=== PATIENT | female | born 1945 | race Caucasian/White ===

== ENCOUNTER 2020-02-10 14:18 | Outpatient (RCR) | payer MEDICARE, MEDICAID, SELFPAY ==
--- NOTE | 2020-01-16 16:30 | XR_ITS ---
WS: [id number] XR foot LT min 3V* [id number] REASON FOR EXAM: PAIN,REDNESS,NON-HEALING ULCER FINDINGS: Throughout the foot there is evidence of reabsorptive changes and swelling suggesting neuro lamont changes. There is no definite destruction seen but there is mild lytic changes occurring in the distal interph alangeal foot Spurring off the head of the first metatarsal is seen. Lisfranc's joint shows reabsorptive changes. There is soft tissue swelling of the foot. XR/XR foot LT min 3V* [id number] IMPRESSION: Suspect inflammatory changes in the foot consideration of diabetic neuropathy s hould be ruled out. And a Charcot foot.
--- NOTE | 2020-02-07 11:03 | XR_ITS ---
WS: [id number] LEFT FOOT: 3 VIEW(S) TECHNIQUE: AP HISTORY: PAIN/REDNESS/NON HEALING ULCER COMPARISON: 01/16/2020 No acute fracture or dislocation. Degenerative changes in the midfoot. Joint space narrowing with normal arch of the foot maintained. M ild hallux valgus. Hammertoe deformities. Superficial soft tissue ulceration posterior to the calcaneus extends over length of 3.0 cm. Depth of 0.3 cm. Extensive arterial calcifications. Small calcaneal spur. XR/XR foot LT min 3V* [id number] IMPRESSION: 1. Superficial soft tissue ulceration posterior calcaneus measures 3.0 x 0.3 c m. No underlying osteomyelitis. 2. Peripheral arterial calcifications.
--- NOTE | 2020-02-07 11:03 | XR_ITS ---
WS: [id number] RIGHT FOOT: 3 VIEW(S) TECHNIQUE: PA, oblique and lateral. HISTORY: PAIN/REDNESS/NON HEALING ULCER COMPARISON: 09/16/2019 No acute fracture or dislocation. Prior amputation of the first toe. Soft tissue ulceration distal to the first metatarsal head is agai n evident measuring 2.4 x 0.5 cm. No osteomyelitis is evident at the first metatarsal head. New destr uction involving the distal phalanx of the second toe with soft tissue edema. Hammertoe deformities. Soft tissue edema around the foot. XR/XR foot RT min 3V* [id number] IMPRESSION: 1. Soft tissue ulceration distal to the first metatarsal head essentially unch anged. No underlying osteomyelitis. 2. New bone destruction involving the distal phalanx of the second toe suspici ous for osteomyelitis. 3. First phalanx amputation.
== END 2020-02-11 23:59 | disposition home or self-care (01) ==
LOC: WOUND 14:18
PROVIDERS: Family Provider Family Medicine; PCP Nurse Practitioner Family; Visit Provider Nurse Practitioner Family
DX: E11.621 Type 2 diabetes mellitus with foot ulcer (principal); L97.513 Non-pressure chronic ulcer of other part of right foot with necrosis of muscle; M79.672 Pain in left foot; M79.671 Pain in right foot; I70.202 Unspecified atherosclerosis of native arteries of extremities, left leg; Z89.421 Acquired absence of other right toe(s); E11.610 Type 2 diabetes mellitus with diabetic neuropathic arthropathy
CPT/HCPCS: 11042; 11044; 73630; 87070; 87077; 87176; 87186; 87205; 99214; G0463; L3260

== ENCOUNTER 2020-02-17 10:11 | Observation (INO) | payer MEDICARE, MEDICAID, SELFPAY ==
[2020-02-17] VITALS (11 sets, daily range): BP systolic 115–182; BP diastolic 53–136; PULSE 54–78; RESP 10–18; TEMP 36.3–36.9; O2SAT 95–100; BMI 27.8
--- NOTE | 2020-02-17 10:29 | XR_ITS ---
WS: [id number] FOOT RIGHT TECHNIQUE: 3 views of the right foot CLINICAL INFORMATION: infection COMPARISON: February 07, 2020 FINDINGS: Osteopenia. Prior postoperative changes amputation of the first MTP. Edema in the soft tiss ue stump. Soft tissue edema involving the second and third digits. Diffuse destructive osteolysis inv olving the second distal phalanx most consistent with osteomyelitis. This is progressed since January 122019. Tiny plantar calcaneal spur. Soft tissue edema at the ankle. XR/XR foot RT min 3V* [id number] IMPRESSION: 1. Progressed destructive osteolysis involving the second distal phalanx consi stent with osteomyelitis. This is progressed since February 07, 2020 2. Stable postoperative changes first MTP amputation. 3. Soft tissue edema worse involving the second and third digits.
--- NOTE | 2020-02-17 10:29 | W.ED.EXTPRO ---
Documented by User: WHIT Cai 02/17/20 13:46 HPI - Extremity Problem General: Chief complaint: Extremity Problem,Nontraumatic Stated complaint: Right foot toe pain Time Seen by Provider: 02/17/20 10:16 Source: patient Mode of arrival: ambulatory Limitations: no limitations History of Present Illness: HPI Narrative: reports she was told to come to ED on Monday by Dr. Banks but she did not have a ride so decided to come today; she states she was told on Monday to come so she can be admitted and Darren can amputate 2nd toe; pt is not reporting fevers; she states redness on her foot does not seem to be worsening; she reports taking antibiotics but does not know name of them-states she has a few doses left; she has been following up with wound care chronically for bilateral feet ulcers. Complaint: other (foot/toe infection ) Onset (ago): week(s) Location: right Associated symptoms: Deny chest pain or fever(s) Review of Systems General: Reports: 10 or more systems reviewed and unremarkable except in HPI and below Const: Denies: fever, chills, body aches or fatigue Card: Denies: chest pain, palpitations, irregular heart rhythm, edema, lightheadedness, syncope or pre-syncope Resp: Denies: shortness of breath, productive cough, non-productive cough or chest congestion GI: Denies: abdominal pain, nausea, vomiting or diarrhea Musc: Reports: extremity swelling and redness; Denies: neck pain or back pain Skin/Breast: Reports: other (bilateral foot ulcers) Neuro: Denies: headache or changes in sensation [facility] ED PFSH: Medical History (Updated 02/17/20 @ 17:04 by Thomas Tejada MD) CVA (cerebral vascular accident) Diabetes mellitus type 2 in nonobese Diabetic foot ulcer Hypertension Hypothyroidism Peripheral vascular disease Recent stenting procedure to left lower extremity for which she has a dressing and recently had wound VAC Surgical History (Updated 02/17/20 @ 16:59 by Thomas Tejada MD) History of appendectomy History of hysterectomy Family History (Updated 02/17/20 @ 16:59 by Thomas Tejada MD) Other CAD (coronary artery disease) Diabetes Social History (Updated 02/17/20 @ 16:59 by Thomas Tejada MD) Smoking and tobacco status: former smoker Alcohol intake: never Substance/Drug Use: never Physical Exam Const: COMMON NORMALS: no apparent distress, average body habitus, oriented x3, no limitations, healthy appearing, alert and well nourished Resp: COMMON NORMALS: normal respiratory effort and clear to auscultation bilaterally AUSCULTATION: clear to auscultation bilaterally Cardio: COMMON NORMALS: regular rate and regular rhythm RATE: regular rate RHYTHM: regular rhythm Extremity: OTHER: pt has small shallow ulcer near R first toe amputation (no redness or drainage), she has a diffusely erythematous, swollen R 2nd toe with foul drainage (there is packing present to ulcer); she has redness to distal dorsum of foot that she states is not worsening; patient has a stage II heel ulcer to her L foot w/o redness/drainage/odor Neuro: COMMON NORMALS: oriented x3 SENSORIUM/ORIENTATION: Yes alert Skin: OTHER: see extremity assessment Course Consultations: Consultation #1: Dr. Banks-would like her admitted to observation under his service with hospitalist to consult and manage chronic medical conditions. He will take to OR in a few hours (last PO was at 4am). Spoke about starting Vancomycin/Zosyn however patient has allergy to Vancomycin so surgeon was okay with Levaquin as recent culture states wound is sensitive to this. Patient has not taken her Warfarin since Monday in anticipation of this surgery. Will let data warehouse developer know and pt will go to OR from the ED. Dr. Pearson made aware of patient and will speak to hospitalist. Vital Signs: Vital signs: Vital Signs Temperature 97.7 F 02/17/20 16:05 Pulse Rate 58 L 02/17/20 16:05 Respiratory Rate 17 02/17/20 16:05 Blood Pressure 182/72 02/17/20 16:05 Pulse Oximetry 99 02/17/20 16:05 MDM - Extremity (Nontraumatic) Lab Data: Labs: Lab Results 02/17/20 02/17/20 02/17/20 Range/Units 10:35 10:35 10:35 WBC 7.2 (4.0-10.0) 10^3/ uL RBC 3.54 L (4.1-5.3) 10^6/u L Hgb 10.2 L (11.5-15.3) g/dL Hct 35.7 L (37.0-47.0) % MCV 100.8 H (81-99) fL MCH 28.8 (28.0-34.0) pg MCHC 28.6 L (30.0-36.0) g/dL RDW 16.1 H (12.1-15.1) % Plt Count 379 (130-400) 10^3/c mm MPV 10.3 (7.4-10.4) fL Neut % (Auto) 73.6 % Lymph % (Auto) 18.4 % Dickens % (Auto) 5.7 % Eos % (Auto) 1.1 % Baso % (Auto) 0.6 % Neut # (Auto) 5.3 (1.8-7.7) 10^3/u L Lymph # (Auto) 1.3 (0.8-4.8) 10^3/u L Dickens # (Auto) 0.4 (0.2-0.9) 10^3/u L Eos # (Auto) 0.1 (0.0-0.8) 10^3/u L Baso # (Auto) 0.0 (0.0-0.1) 10^3/u L Nucleated RBC % (a uto) 0 % Nucleated RBCs # 0.0 /100WBC PT (10.5-13.3) SECO NDS INR (0.8-1.2) Sodium 130 L (136-145) mmol/L Potassium 4.3 (3.5-5.1) mmol/L Chloride 97 L (98-107) mmol/L Carbon Dioxide 21 L (22-29) mmol/L Anion Gap 16.3 (5-19) BUN 12 (8-23) mg/dL Creatinine 0.8 (0.5-0.9) mg/dL Glucose 174 H (65-115) mg/dL POC Glucose (70-110) mg/dL Calculated Osmolal ity 270 L (285-295) mOsm/k g Lactate 1.1 (0.5-2.2) mmol/L Calcium 9.2 (8.5-10.5) mg/dL Total Bilirubin 0.3 (0.15-1.2) mg/dL AST 13 (0-32) U/L ALT 7 (0-33) U/L Alkaline Phosphata se 121 H (35-105) IU/L C-Reactive Protein 28.2 H (0.0-4.9) mg/L Total Protein 7.5 (6.6-8.7) g/dL Albumin 3.5 (3.5-5.2) g/dL Globulin 4.0 (1.3-4.6) g/dL 02/17/20 02/17/20 Range/Units 10:35 14:05 WBC (4.0-10.0) 10^3/ uL RBC (4.1-5.3) 10^6/u L Hgb (11.5-15.3) g/dL Hct (37.0-47.0) % MCV (81-99) fL MCH (28.0-34.0) pg MCHC (30.0-36.0) g/dL RDW (12.1-15.1) % Plt Count (130-400) 10^3/c mm MPV (7.4-10.4) fL Neut % (Auto) % Lymph % (Auto) % Dickens % (Auto) % Eos % (Auto) % Baso % (Auto) % Neut # (Auto) (1.8-7.7) 10^3/u L Lymph # (Auto) (0.8-4.8) 10^3/u L Dickens # (Auto) (0.2-0.9) 10^3/u L Eos # (Auto) (0.0-0.8) 10^3/u L Baso # (Auto) (0.0-0.1) 10^3/u L Nucleated RBC % (a uto) % Nucleated RBCs # /100WBC PT 14.30 H (10.5-13.3) SECO NDS INR 1.07 (0.8-1.2) Sodium (136-145) mmol/L Potassium (3.5-5.1) mmol/L Chloride (98-107) mmol/L Carbon Dioxide (22-29) mmol/L Anion Gap (5-19) BUN (8-23) mg/dL Creatinine (0.5-0.9) mg/dL Glucose (65-115) mg/dL POC Glucose 202 (70-110) mg/dL Calculated Osmolal ity (285-295) mOsm/k g Lactate (0.5-2.2) mmol/L Calcium (8.5-10.5) mg/dL Total Bilirubin (0.15-1.2) mg/dL AST (0-32) U/L ALT (0-33) U/L Alkaline Phosphata se (35-105) IU/L C-Reactive Protein (0.0-4.9) mg/L Total Protein (6.6-8.7) g/dL Albumin (3.5-5.2) g/dL Globulin (1.3-4.6) g/dL Imaging Data^: R foot XR: Radiologist's impression: [facility] [address] [address] XRay Report Signed Patient: Yovana Madison Unit #: [id number] : 1945 Age/Sex: 74 / F ADM Date: 02/17/20 Loc: ER Room/Bed: Attending Dr: Ordering Provider/Ordering MD: Alda Justin Date of Service: 02/17/20 Procedure(s): XR foot RT min 3V* [id number] Accession Number(s): [id number] Report Number: [id number] WS: [id number] FOOT RIGHT TECHNIQUE: 3 views of the right foot CLINICAL INFORMATION: infection COMPARISON: February 07, 2020 FINDINGS: Osteopenia. Prior postoperative changes amputation of the first MTP. Edema in the soft tissue stump. Soft tissue edema involving the second and third digits. Diffuse destructive osteolysis involving the second distal phalanx most consistent with osteomyelitis. This is progressed since February 07, 2020. Tiny plantar calcaneal spur. Soft tissue edema at the ankle. XR/XR foot RT min 3V* [id number] IMPRESSION: 1. Progressed destructive osteolysis involving the second distal phalanx consistent with osteomyelitis. This is progressed since February 07, 2020 2. Stable postoperative changes first MTP amputation. 3. Soft tissue edema worse involving the second and third digits. Dictated By: Gal Herrera MD Signed By: Gal Herrera MD Signed Date/Time: 02/17/20 1117 DD/ 1114 Discharge Plan Discharge Patient Disposition: Placed in Observation Admit Provider: Jose R Valle Clinical Impression: Acute osteomyelitis of toe of right foot Condition: Stable Referrals: Philippe Guerra [Primary Care Provider] - Discharge Date/Time: 02/17/20 14:02 Coding Level of Care Code ED Measurement Analyst for Chg Fwd Exam Expanded Problem Focused Documented by User: Gisela Pearson DO 02/17/20 17:29 HPI - Extremity Problem General: Chief complaint: Extremity Problem,Nontraumatic Stated complaint: Right foot toe pain Time Seen by Provider: 02/17/20 10:16 PFSH ED PFSH: Medical History (Updated 02/17/20 @ 17:04 by Thomas Tejada MD) CVA (cerebral vascular accident) Diabetes mellitus type 2 in nonobese Diabetic foot ulcer Hypertension Hypothyroidism Peripheral vascular disease Recent stenting procedure to left lower extremity for which she has a dressing and recently had wound VAC Surgical History (Updated 02/17/20 @ 16:59 by Thomas Tejada MD) History of appendectomy History of hysterectomy Family History (Updated 02/17/20 @ 16:59 by Thomas Tejada MD) Other CAD (coronary artery disease) Diabetes Social History (Updated 02/17/20 @ 16:59 by Thomas Tejada MD) Smoking and tobacco status: former smoker Alcohol intake: never Substance/Drug Use: never Course Vital Signs: Vital signs: Vital Signs Temperature 97.7 F 02/17/20 16:05 Pulse Rate 58 L 02/17/20 16:05 Respiratory Rate 17 02/17/20 16:05 Blood Pressure 182/72 02/17/20 16:05 Pulse Oximetry 99 02/17/20 16:05 MDM - Extremity (Nontraumatic) MDM Narrative: Medical decision making narrative: I, Dr Pearson will speak to Dr Tejada re: consultation for pts chronic medical problems, Dr Zuniga is admitting and will take her to surgery from er. Lab Data: Labs: Lab Results 02/17/20 02/17/20 02/17/20 Range/Units 10:35 10:35 10:35 WBC 7.2 (4.0-10.0) 10^3/ uL RBC 3.54 L (4.1-5.3) 10^6/u L Hgb 10.2 L (11.5-15.3) g/dL Hct 35.7 L (37.0-47.0) % MCV 100.8 H (81-99) fL MCH 28.8 (28.0-34.0) pg MCHC 28.6 L (30.0-36.0) g/dL RDW 16.1 H (12.1-15.1) % Plt Count 379 (130-400) 10^3/c mm MPV 10.3 (7.4-10.4) fL Neut % (Auto) 73.6 % Lymph % (Auto) 18.4 % Dickens % (Auto) 5.7 % Eos % (Auto) 1.1 % Baso % (Auto) 0.6 % Neut # (Auto) 5.3 (1.8-7.7) 10^3/u L Lymph # (Auto) 1.3 (0.8-4.8) 10^3/u L Dickens # (Auto) 0.4 (0.2-0.9) 10^3/u L Eos # (Auto) 0.1 (0.0-0.8) 10^3/u L Baso # (Auto) 0.0 (0.0-0.1) 10^3/u L Nucleated RBC % (a uto) 0 % Nucleated RBCs # 0.0 /100WBC PT (10.5-13.3) SECO NDS INR (0.8-1.2) Sodium 130 L (136-145) mmol/L Potassium 4.3 (3.5-5.1) mmol/L Chloride 97 L (98-107) mmol/L Carbon Dioxide 21 L (22-29) mmol/L Anion Gap 16.3 (5-19) BUN 12 (8-23) mg/dL Creatinine 0.8 (0.5-0.9) mg/dL Glucose 174 H (65-115) mg/dL POC Glucose (70-110) mg/dL Calculated Osmolal ity 270 L (285-295) mOsm/k g Lactate 1.1 (0.5-2.2) mmol/L Calcium 9.2 (8.5-10.5) mg/dL Total Bilirubin 0.3 (0.15-1.2) mg/dL AST 13 (0-32) U/L ALT 7 (0-33) U/L Alkaline Phosphata se 121 H (35-105) IU/L C-Reactive Protein 28.2 H (0.0-4.9) mg/L Total Protein 7.5 (6.6-8.7) g/dL Albumin 3.5 (3.5-5.2) g/dL Globulin 4.0 (1.3-4.6) g/dL 02/17/20 02/17/20 Range/Units 10:35 14:05 WBC (4.0-10.0) 10^3/ uL RBC (4.1-5.3) 10^6/u L Hgb (11.5-15.3) g/dL Hct (37.0-47.0) % MCV (81-99) fL MCH (28.0-34.0) pg MCHC (30.0-36.0) g/dL RDW (12.1-15.1) % Plt Count (130-400) 10^3/c mm MPV (7.4-10.4) fL Neut % (Auto) % Lymph % (Auto) % Dickens % (Auto) % Eos % (Auto) % Baso % (Auto) % Neut # (Auto) (1.8-7.7) 10^3/u L Lymph # (Auto) (0.8-4.8) 10^3/u L Dickens # (Auto) (0.2-0.9) 10^3/u L Eos # (Auto) (0.0-0.8) 10^3/u L Baso # (Auto) (0.0-0.1) 10^3/u L Nucleated RBC % (a uto) % Nucleated RBCs # /100WBC PT 14.30 H (10.5-13.3) SECO NDS INR 1.07 (0.8-1.2) Sodium (136-145) mmol/L Potassium (3.5-5.1) mmol/L Chloride (98-107) mmol/L Carbon Dioxide (22-29) mmol/L Anion Gap (5-19) BUN (8-23) mg/dL Creatinine (0.5-0.9) mg/dL Glucose (65-115) mg/dL POC Glucose 202 (70-110) mg/dL Calculated Osmolal ity (285-295) mOsm/k g Lactate (0.5-2.2) mmol/L Calcium (8.5-10.5) mg/dL Total Bilirubin (0.15-1.2) mg/dL AST (0-32) U/L ALT (0-33) U/L Alkaline Phosphata se (35-105) IU/L C-Reactive Protein (0.0-4.9) mg/L Total Protein (6.6-8.7) g/dL Albumin (3.5-5.2) g/dL Globulin (1.3-4.6) g/dL Discharge Plan Discharge Patient Disposition: Placed in Observation Admit Provider: Jose R Valle Clinical Impression: Acute osteomyelitis of toe of right foot Condition: Stable Referrals: Philippe Guerra [Primary Care Provider] - Discharge Date/Time: 02/17/20 14:02 Coding Level of Care Code ED Measurement Analyst for Chg Fwd Exam Expanded Problem Focused
[2020-02-17 10:44] LABS: Basophils % 0.6 %; Eosinophils # 0.1 10^3/uL (0.0-0.8); Eosinophils % 1.1 %; Hematocrit 35.7 % (37.0-47.0); Hemoglobin 10.2 g/dL (11.5-15.3); Lymphocytes # 1.3 10^3/uL (0.8-4.8); Lymphocytes % 18.4 %; Mean Corpuscular HGB Conc 28.6 g/dL (30.0-36.0); Mean Corpuscular Hemoglobin 28.8 pg (28.0-34.0); Mean Corpuscular Volume 100.8 fL (81-99); Mean Platelet Volume 10.3 fL (7.4-10.4); Monocytes # 0.4 10^3/uL (0.2-0.9); Monocytes % 5.7 %; Neutrophils # 5.3 10^3/uL (1.8-7.7); Neutrophils % 73.6 %; Nucleated Red Blood Cells % 0 %; Platelet Count 379 10^3/cmm (130-400); Red Blood Count 3.54 10^6/uL (4.1-5.3); Red Cell Distribution Width 16.1 % (12.1-15.1); White Blood Count 7.2 10^3/uL (4.0-10.0)
[2020-02-17 10:59] LABS: Lactate (Lactic Acid level) 1.1 mmol/L (0.5-2.2)
[2020-02-17 11:00] LABS: Alanine Aminotransferase 7 U/L (0-33); Albumin Level 3.5 g/dL (3.5-5.2); Alkaline Phosphatase 121 IU/L (35-105); Anion Gap 16.3 (5-19); Aspartate Amino Transferase 13 U/L (0-32); Blood Urea Nitrogen 12 mg/dL (8-23); C Reactive Protein 28.2 mg/L (0.0-4.9); Calcium 9.2 mg/dL (8.5-10.5); Carbon Dioxide 21 mmol/L (22-29); Chloride 97 mmol/L (98-107); Glucose 174 mg/dL (65-115); Osmolality Calculated 270 mOsm/kg (285-295); Potassium 4.3 mmol/L (3.5-5.1); Sodium 130 mmol/L (136-145); Total Bilirubin 0.3 mg/dL (0.15-1.2); Total Protein 7.5 g/dL (6.6-8.7)
[2020-02-17 12:05] LABS: INR 1.07 (0.8-1.2)
[2020-02-17] MEDS: levofloxacin-dextrose 5 % 750 MG/150 ML PREMIX 150 MG IV (12:09)
--- NOTE | 2020-02-17 13:47 | W.PM.OPSFHP ---
Same Day Surgery H&P Indication for Procedure/HPI DATE OF PROCEDURE: February 17, 2020 CHIEF COMPLAINT/INDICATIONFOR SURGICAL PROCEDURE: Right foot infection PREOP DIAGNOSIS: Right diabetic foot infection PLANNED PROCEDRUE: Operation Date: 02/17/20 14:00 Proposed Procedures p amputation of the right second toe(Right) - Vladimir Banks MD This is a pleasant 74 years old female patient with complicated diabetes mellitus type 2 patient is well-known to me from the wound care center and has been having right diabetic foot infection, patient was encouraged on many occasions to go to the hospital for right second toe amputation due to bone exposure but for social reasons she was not able to come, she was placed on oral antibiotics and today she finally was able to come to the ER for potential intervention. ROS All systems have been reviewed negative except as for the above and problem list Medications/Allergies* Home Medications Medication Instructions Recorded Confirmed Type amlodipine 10 mg PO DAILY 02/17/20 02/17/20 History atenolol 25 mg PO DAILY 02/17/20 02/17/20 History cilostazol 50 mg PO BID 02/17/20 02/17/20 History ciprofloxacin HCl 500 mg PO BID 02/17/20 02/17/20 History furosemide 20 mg PO DAILY 02/17/20 02/17/20 History hydroxyurea See Rx Instructions .ROUTE .COMPLEX 02/17/20 02/17/20 History insulin detemir U-100 [Levemir 46 unit SUBCUT BEDTIME 02/17/20 02/17/20 History FlexTouch U-100 Insuln] levothyroxine 137 mcg PO DAILY 02/17/20 02/17/20 History losartan 50 mg PO DAILY 02/17/20 02/17/20 History metformin 500 mg PO DAILY 02/17/20 02/17/20 History potassium chloride 10 meq PO DAILY 02/17/20 02/17/20 History sertraline 50 mg PO DAILY 02/17/20 02/17/20 History tramadol 50 mg PO Q6H PRN 02/17/20 02/17/20 History warfarin See Rx Instructions .ROUTE .COMPLEX 02/17/20 02/17/20 History Allergies/Adverse Reactions Allergy/AdvReac Type Severity Reaction Status Date / Time codeine Allergy ADR/ALGY-Pa Verified 02/17/20 13:49 lpitations imatinib [From Gleevec] Allergy ALGY-Swell Verified 02/17/20 13:49 Lip/Tongue/Throat morphine Allergy ALGY-Anaphy Verified 02/17/20 13:49 laxis vancomycin Allergy ALGY-Rash Verified 02/17/20 13:49 Pertinent History/Comorbid Conditions* Social History Smoking and tobacco status: former smoker Pertinent Exam Findings alert, clear to auscultation bilaterally and operative site marked (Right foot) Pertinent Data PERTINENT DATA: X-ray right foot ; 1. Progressed destructive osteolysis involving the second distal phalanx consistent with osteomyelitis. This is progressed since February 07, 2020 2. Stable postoperative changes first MTP amputation. 3. Soft tissue edema worse involving the second and third digits. Recommendations Surgery/Procedure today (After thorough history physical examination and reviewing the chart and images with my personal interpretation, I did reimbursement counselor the patient for amputation of right second toe.We will have the patient stay in observation status and will have hospitalist consultation for management of diabetes other med) Coding Level of Care Code Acute Steam Tunnel Feeder for Vilma Garrison
--- NOTE | 2020-02-17 13:53 | P.ANESASSM_ITS ---
Pre-Anesthetic Assessment Pre-Anesthetic Assessment: Height/Weight: Height 1.65 m Weight 75.75 kg Temp Pulse Resp BP Pulse Ox 98.0 F 62 16 160/136 98 02/17/20 10:18 02/17/20 10:18 02/17/20 10:18 02/17/20 10:18 02/17/20 10:43 Preop Diagnosis: Right diabetic foot infection Proposed Procedure: Operation Date: 02/17/20 14:00 Proposed Procedures p amputation of the right second toe(Right) - Vladimir Banks MD Last intake: Intake Last Liquid Date 02/17/20 Last Liquid Time 06:00 Last Solid Date 02/17/20 Last Solid Time 04:00 Social: Comment: brief & remote Exam: Pre-Anes Outpt Exam: alert, oriented x 3, clear to auscultation bilate rally and regular rate & rhythm CV/HEM: CV/HEM: HTN Comments: rx'd x 15y : Comments: frequency, urgency Metabolic: Metabolic: DM Comments: rx'd x 20y, normally 65-200 Neuropsych: Neuropsych: CVA Comments: '05 left UE/le without residuals Anesthetic Plan: ASA status: 3E PFSH Anesthesia PFSH: Social History Smoking and tobacco status: former smoker Data Anesthesia CBC & Chem 7: 02/17/20 10:35 02/17/20 10:35 Other Labs: Laboratory Results - last 48 hr 02/17/20 02/17/20 02/17/20 10:35 10:35 10:35 WBC 7.2 RBC 3.54 L Hgb 10.2 L Hct 35.7 L MCV 100.8 H MCH 28.8 MCHC 28.6 L RDW 16.1 H Plt Count 379 MPV 10.3 Neut % (Auto) 73.6 Lymph % (Auto) 18.4 Russell % (Auto) 5.7 Eos % (Auto) 1.1 Baso % (Auto) 0.6 Neut # (Auto) 5.3 Lymph # (Auto) 1.3 Russell # (Auto) 0.4 Eos # (Auto) 0.1 Baso # (Auto) 0.0 Nucleated RBC % (auto) 0 Nucleated RBCs # 0.0 PT INR Sodium 130 L Potassium 4.3 Chloride 97 L Carbon Dioxide 21 L Anion Gap 16.3 BUN 12 Creatinine 0.8 Glucose 174 H Calculated Osmolality 270 L Lactate 1.1 Calcium 9.2 Total Bilirubin 0.3 AST 13 ALT 7 Alkaline Phosphatase 121 H C-Reactive Protein 28.2 H Total Protein 7.5 Albumin 3.5 Globulin 4.0 02/17/20 10:35 WBC RBC Hgb Hct MCV MCH MCHC RDW Plt Count MPV Neut % (Auto) Lymph % (Auto) Russell % (Auto) Eos % (Auto) Baso % (Auto) Neut # (Auto) Lymph # (Auto) Russell # (Auto) Eos # (Auto) Baso # (Auto) Nucleated RBC % (auto) Nucleated RBCs # PT 14.30 H INR 1.07 Sodium Potassium Chloride Carbon Dioxide Anion Gap BUN Creatinine Glucose Calculated Osmolality Lactate Calcium Total Bilirubin AST ALT Alkaline Phosphatase C-Reactive Protein Total Protein Albumin Globulin Micro: Microbiology 02/17/20 11:05 Blood Culture - Preliminary Blood SPECIMEN COLLECTED 02/17/20 10:35 Blood Culture - Preliminary Blood SPECIMEN COLLECTED Cardiac Studies: No Data to Display
[2020-02-17 14:09] LABS: Glucose Point of Care 202 mg/dL (70-110)
[2020-02-17] MEDS: insulin regular-human 100 units/1 mL 5 UNIT IVP (14:21)
[2020-02-17] MEDS: sodium chloride 0.9% 1,000 ML 30 ML IV (14:24)
[2020-02-17] MEDS: lidocaine 2% INJ 20 mL INJECTION (14:49)
[2020-02-17] MEDS: neomycin-poly-bacitracin oint 28 gm 1 APPLIC TOPICAL (14:50)
--- NOTE | 2020-02-17 14:59 | P.OP_ITS ---
Operative Report Date of procedure: February 17, 2020 Pre-op Diagnosis: Right diabetic foot infection Post-op diagnosis: same Post-op Findings: Exposed phalangeal bone through an open wound of right second toe with osteomyelitic changes Procedure Done: Amputation of right second toe Specimens removed/disposition: Right second toe Surgeon: Vladimir Banks Poultry Husbandry Teacher: Yamileth surgical scheduler Cherelle López Anesthesia: MAC Estimated blood loss (mL): 5 Condition: stable Disposition: floor Brief History: This is a pleasant 74 years old female patient with complicated history of diabetes mellitus that had previous amputee before of right big toe, patient is known to me from the wound care center after she was referred by my nurse practitioner Ms. Fuller for further evaluation, patient had an exposed bone of the right second toe and I did financial counselor the patient for amputation of that toe, for concern of ascending infection and involvement of patient's right lower extremity which may end up in sepsis and septic shock. Informed consent per chart Procedure: Patient after being identified in the holding area and her right lower extremity was marked by me, and informed consent per chart ,patient was then taken back to the OR placed in supine position got intubated by anesthesia . Time-out was done verifying the patient's name/date of /planned procedure and destination after the procedure, all were in agreement.preoperative antibiotics administered per protocol, and beta martha protocol was confirmed. prep and drape of the right lower extremity including the left foot was done under the usual sterile technique. Intraoperative findings; Infected right second toe with bone fragmentation A mouth fish transverse incision,the skin incision was created at the base of the right second toe dissection was carried down all the way to the proximal part of the healthier metatarsal bone, soft tissues were retracted proximally using a freerer, to expose the proximal part of the proximal right second metatarsal bone, were an electric bone saw was applied to amputate the toe, the specimen was then passed to the circulating nurse for permanent pathology, an electric bone rasp was then used to Sooth the edges of the amputated bone together, hemostasis was achieved followed by thorough irrigation, 3-0 PDS were used to cover the bone with the surrounding soft tissues, then continued 3-0 nylon sutures. Triple antibiotic ointment was then applied followed by dry dressing, Kerlix and Andrews wrap Count was completed at the end of the procedure including instruments and sponges and needles I was present for the whole entire procedure Patient was taken to the recovery in stable condition
[2020-02-17 15:41] LABS: Glucose Point of Care 136 mg/dL (70-110)
--- NOTE | 2020-02-17 16:55 | PM.HP ---
Providers/Chief Complaint Admitting Physician: Jose R Valle MD Primary Care Provider: Philippe Guerra Chief Complaint: Right foot toe pain History of Present Illness Yovana Madison is a 74 year old female that presented to the emergency department on the instructions of her wound care physician. She has been having issues with her right foot, second toe with cellulitis for quite some time. Exposed bone has been present on the right second toe, and surgery has been anticipated. She denies any fevers. She is recently been on antibiotics and the cellulitis has been improving according to the patient. She reports minimal pain. Review of Systems General: Reports: 10 or more systems reviewed and unremarkable except in HPI and below Const: Denies: fever or chills Eyes: Denies: blurry vision ENMT: Denies: throat pain Card: Denies: chest pain or palpitations Resp: Denies: shortness of breath GI: Denies: abdominal pain : Denies: flank pain Musc: Denies: neck pain Skin/Breast: Denies: rash Neuro: Denies: headache Psych: Denies: anxiety or depression Endo: Denies: excessive urination Akin/Lymph: Denies: easy bruising All/Imm: Denies: hives Medications/Allergies Home Medications Medication Instructions Recorded Confirmed Last Taken Type amlodipine 10 mg PO DAILY 02/17/20 02/17/20 02/17/20 History atenolol 25 mg PO DAILY 02/17/20 02/17/20 02/17/20 History cilostazol 50 mg PO BID 02/17/20 02/17/20 02/17/20 History ciprofloxacin HCl 500 mg PO BID 02/17/20 02/17/20 02/17/20 History furosemide 20 mg PO DAILY 02/17/20 02/17/20 02/17/20 History hydroxyurea See Rx Instructions .ROUTE .COMPLEX 02/17/20 02/17/20 02/17/20 History insulin detemir U-100 [Levemir 46 unit SUBCUT BEDTIME 02/17/20 02/17/20 02/16/20 History FlexTouch U-100 Insuln] levothyroxine 137 mcg PO DAILY 02/17/20 02/17/20 02/17/20 History losartan 50 mg PO DAILY 02/17/20 02/17/20 02/17/20 History metformin 500 mg PO DAILY 02/17/20 02/17/20 02/17/20 History potassium chloride 10 meq PO DAILY 02/17/20 02/17/20 02/17/20 History sertraline 50 mg PO DAILY 02/17/20 02/17/20 02/17/20 History tramadol 50 mg PO Q6H PRN 02/17/20 02/17/20 Unknown History warfarin See Rx Instructions .ROUTE .COMPLEX 02/17/20 02/17/20 02/14/20 History Allergies Allergy/AdvReac Type Severity Reaction Status Date / Time morphine Allergy Severe ALGY-Anaphy Verified 02/17/20 15:14 laxis codeine Allergy ADR/ALGY-Pa Verified 02/17/20 15:14 lpitations imatinib [From Gleevec] Allergy ALGY-Swell Verified 02/17/20 14:09 Lip/Tongue/Throat vancomycin Allergy ALGY-Rash Verified 02/17/20 14:09 PFSH Acute PFSH: Medical History (Updated 02/17/20 @ 17:04 by Thomas Quinonez MD) CVA (cerebral vascular accident) Diabetes mellitus type 2 in nonobese Diabetic foot ulcer Hypertension Hypothyroidism Peripheral vascular disease Recent stenting procedure to left lower extremity for which she has a dressing and recently had wound VAC Surgical History (Updated 02/17/20 @ 16:59 by Thomas Quinonez MD) History of appendectomy History of hysterectomy Family History (Updated 02/17/20 @ 16:59 by Thomas Quinonez MD) Other CAD (coronary artery disease) Diabetes Social History (Updated 02/17/20 @ 16:59 by Thomas Quinonez MD) Smoking and tobacco status: former smoker Alcohol intake: never Substance/Drug Use: never Vitals/I&O/Wt Last Vital Signs Temp 97.7 F 02/17/20 16:05 Pulse 58 L 02/17/20 16:05 Resp 17 02/17/20 16:05 BP 182/72 02/17/20 16:05 Pulse Ox 99 02/17/20 16:05 02/17/20 02/17/20 02/17/20 06:59 14:59 22:59 Intake Total 150 / 150 0 / 150 Output Total 300 / 300 Balance 150 / 150 -300 / -150 Weight last 48 hrs Weight 75.75 kg Physical Exam Narrative: EXAM NARRATIVE: General exam is a white female, no apparent distress HEENT: Pupils equally round. Oropharynx clear. Neck is supple no lymphadenopathy or thyromegaly Cardiovascular regular rate and rhythm without murmur. No S3 or S4 Lungs clear no wheezing or crackles Abdomen is soft with positive bowel sounds. No obvious organomegaly was deferred Extremities no cyanosis or clubbing. Right foot with great toe amputation site noted well-healed. Second toe with exposed bone. Slight amount of cellulitis that appears to be resolving dorsum of the foot. Left heel with some skin breakdown. Right foot with a medial, metatarsal ridge callus. Skin see above Neuro no focal deficits Data : 02/17/20 10:35 02/17/20 10:35 Micro: Microbiology 02/17/20 11:05 Blood Culture - Preliminary Blood SPECIMEN COLLECTED 02/17/20 10:35 Blood Culture - Preliminary Blood SPECIMEN COLLECTED Other data: Foot x-ray demonstrated osteomyelitis second distal phalanx A&P Assessment and plan (1) Acute osteomyelitis of toe of right foot: Surgery anticipates amputation. Bactrim DS 1 p.o. twice daily initiated Status: Acute (2) Cellulitis of right lower extremity: This appears significantly resolved. Bactrim will be ordered in the perioperative period Status: Acute Additional A&P Information Mild hyponatremia. BMP tomorrow type 2 diabetes. Mild sliding scale insulin. Continue home meds. Hypertension. Continue home medications Peripheral vascular disease Hypothyroidism History of CVA Full code Heparin for DVT prophylaxis Attestations Medical Necessity Statement*: Will need less than 2 midnight stay for treatment of diabetic foot ulcer with amputation. Coding Level of Care Code Acute Supervisor Insulation for Vilma Garrison Diagnoses Acute osteomyelitis of toe of right foot M86.171 Cellulitis of right lower extremity L03.115
[2020-02-17 17:27] LABS: Glucose Point of Care 140 mg/dL (70-110)
[2020-02-17] MEDS: cilostazol 100 mg Tablet 50 MG PO (18:16)
[2020-02-17] MEDS: sulfamethoxazole-trimeth DS 160-800 mg Tablet 1 TAB PO (18:16)
[2020-02-17] MEDS: hydroxyurea 500 mg Capsule PO (18:28)
[2020-02-17 20:21] LABS: Glucose Point of Care 199 mg/dL (70-110)
[2020-02-17] MEDS: TRAMadol 50 mg Tablet PO (20:28)
[2020-02-18] VITALS: BP 132/70; PULSE 58; RESP 17; TEMP 36.8; O2SAT 96
[2020-02-18 04:00] VITALS: BP 143/56; PULSE 54; RESP 16; TEMP 37; O2SAT 99
[2020-02-18 05:36] LABS: Basophils % 0.4 %; Eosinophils # 0.1 10^3/uL (0.0-0.8); Eosinophils % 1.4 %; Hematocrit 28.4 % (37.0-47.0); Hemoglobin 8.5 g/dL (11.5-15.3); Lymphocytes # 1.4 10^3/uL (0.8-4.8); Mean Corpuscular HGB Conc 29.9 g/dL (30.0-36.0); Mean Corpuscular Hemoglobin 29.1 pg (28.0-34.0); Mean Corpuscular Volume 97.3 fL (81-99); Mean Platelet Volume 10.7 fL (7.4-10.4); Monocytes # 0.3 10^3/uL (0.2-0.9); Monocytes % 6.3 %; Neutrophils # 3.2 10^3/uL (1.8-7.7); Neutrophils % 63.1 %; Nucleated Red Blood Cells % 0 %; Platelet Count 326 10^3/cmm (130-400); Red Blood Count 2.92 10^6/uL (4.1-5.3); White Blood Count 5.1 10^3/uL (4.0-10.0)
[2020-02-18 06:08] LABS: Anion Gap 12.1 (5-19); Blood Urea Nitrogen 10 mg/dL (8-23); Calcium 8.8 mg/dL (8.5-10.5); Carbon Dioxide 22 mmol/L (22-29); Chloride 102 mmol/L (98-107); Glucose 68 mg/dL (65-115); Osmolality Calculated 268 mOsm/kg (285-295); Potassium 4.1 mmol/L (3.5-5.1); Sodium 132 mmol/L (136-145)
[2020-02-18 06:37] LABS: Glucose Point of Care 64 mg/dL (70-110)
--- NOTE | 2020-02-18 06:43 | P.PN_ITS ---
Subjective Subjective: Interval history: Patient overall is doing well No acute events overnight Vitals/I&O/Wt Last Vital Signs Temp 98.6 F 02/18/20 04:00 Pulse 54 L 02/18/20 04:00 Resp 16 02/18/20 04:00 BP 143/56 02/18/20 04:00 Pulse Ox 99 02/18/20 04:00 02/17/20 02/17/20 02/18/20 14:59 22:59 06:59 Intake Total 150 / 150 0 / 150 480 / 630 Output Total 1100 / 1100 300 / 1400 Balance 150 / 150 -1100 / -950 180 / -770 Weight last 48 hrs Weight 167 lb Physical Exam Narrative: EXAM NARRATIVE: Patient is conscious alert oriented X3 BMI 28 Head and neck examination PERRLA no masses no cervical lymphadenopathy no jaundice Right foot no swelling or cellulitis incision is clean dry and intact Dressing was done by me bedside in the form of triple antibiotic ointment 4 x 4 ABD and Andrews wrap Data : 02/18/20 04:58 02/18/20 04:58 Micro: Microbiology 02/17/20 11:05 Blood Culture - Preliminary Blood SPECIMEN COLLECTED 02/17/20 10:35 Blood Culture - Preliminary Blood SPECIMEN COLLECTED A&P Assessment and plan (1) Acute osteomyelitis of toe of right foot: We will plan to discharge patient home today and follow-up with me at the wound care center this coming Nonweightbearing right forefoot Continue home medications I appreciate Dr. Quinonez's input Status: Resolved Attestations Medical Necessity Statement*: Observation status Time Spent in Patient Care: 16 - 35 minutes (>than 50% of time spent in counselling and/or direct pt care on unit) . Coding Level of Care Code Acute Master Mechanic for Vilma Garrison Diagnoses Acute osteomyelitis of toe of right foot M86.171
--- NOTE | 2020-02-18 06:44 | P.SS_ITS ---
Short Stay Summary Providers Date of Admit/Discharge: 02/18/20 Attending Provider: Vladimir Banks MD Primary Care Provider: Philippe Guerra Chief Complaint: Right foot toe pain HPI History of Present Illness Yovana Madison is a 74 year old female with complicated diabetic foot infection and exposed bone of the right second toe that required amputation. Patient was admitted on my service for observation status and hospitalist was consulted for management of patient's diabetes Undergone uneventful surgery and plan to discharge home today Review of Systems General: Reports: 10 or more systems reviewed and unremarkable except in HPI and below Const: Denies: fever, chills, body aches or fatigue Card: Denies: chest pain, palpitations, irregular heart rhythm, edema, lightheadedness, syncope or pre-syncope Resp: Denies: shortness of breath, productive cough, non-productive cough or chest congestion GI: Denies: abdominal pain, nausea, vomiting or diarrhea Musc: Denies: neck pain, back pain, extremity swelling or redness Skin/Breast: Reports: other (bilateral foot ulcers) Neuro: Denies: headache or changes in sensation Home Meds/Allergies Home Medications and Allergies Home Medications Medication Instructions Recorded Confirmed Type Levemir FlexTouch U-100 Insuln 46 unit SUBCUT BEDTIME 02/17/20 02/17/20 History amlodipine 10 mg PO DAILY 02/17/20 02/17/20 History atenolol 25 mg PO DAILY 02/17/20 02/17/20 History cilostazol 50 mg PO BID 02/17/20 02/17/20 History furosemide 20 mg PO DAILY 02/17/20 02/17/20 History hydroxyurea See Rx Instructions .ROUTE .COMPLEX 02/17/20 02/17/20 History levothyroxine 137 mcg PO DAILY 02/17/20 02/17/20 History losartan 50 mg PO DAILY 02/17/20 02/17/20 History metformin 500 mg PO DAILY 02/17/20 02/17/20 History potassium chloride 10 meq PO DAILY 02/17/20 02/17/20 History sertraline 50 mg PO DAILY 02/17/20 02/17/20 History tramadol 50 mg PO Q6H PRN 02/17/20 02/17/20 History warfarin See Rx Instructions .ROUTE .COMPLEX 02/17/20 02/17/20 History Allergies Allergy/AdvReac Type Severity Reaction Status Date / Time morphine Allergy Severe ALGY-Anaphy Verified 02/18/20 14:57 laxis codeine Allergy ADR/ALGY-Pa Verified 02/18/20 14:57 lpitations imatinib [From Gleevec] Allergy ALGY-Swell Verified 02/18/20 14:57 Lip/Tongue/Throat vancomycin Allergy ALGY-Rash Verified 02/18/20 14:57 PFSH Acute PFSH: Medical History (Updated 02/18/20 @ 15:01 by Vladimir Banks MD) CVA (cerebral vascular accident) Diabetes mellitus type 2 in nonobese Diabetic foot ulcer Hypertension Hypothyroidism Peripheral vascular disease Recent stenting procedure to left lower extremity for which she has a dressing and recently had wound VAC Surgical History (Updated 02/17/20 @ 16:59 by Thomas Quinonez MD) History of appendectomy History of hysterectomy Family History (Updated 02/17/20 @ 16:59 by Thomas Quinonez MD) Other CAD (coronary artery disease) Diabetes Social History (Updated 02/17/20 @ 16:59 by Thomas Quinonez MD) Smoking and tobacco status: former smoker Alcohol intake: never Substance/Drug Use: never Vitals/I&O/Wt Last Vital Signs Temp 98.6 F 02/18/20 04:00 Pulse 54 L 02/18/20 04:00 Resp 16 02/18/20 04:00 BP 143/56 02/18/20 04:00 Pulse Ox 99 02/18/20 04:00 02/17/20 02/17/20 02/18/20 14:59 22:59 06:59 Intake Total 150 / 150 0 / 150 480 / 630 Output Total 1100 / 1100 300 / 1400 Balance 150 / 150 -1100 / -950 180 / -770 Weight last 48 hrs Weight 167 lb Physical Exam Narrative: EXAM NARRATIVE: Patient is conscious alert oriented X3 BMI 28 Head and neck examination PERRLA no masses no cervical lymphadenopathy no jaundice Right foot no swelling or cellulitis incision is clean dry and intact and warm. Dressing was done by me bedside in the form of triple antibiotic ointment 4 x 4 ABD and Andrews wrap Hospital Course Admission Diagnoses: Diabetic foot infection with exposed bone of right second Hospital Course: Patient following surgery did well and she continues to have no fevers, tolerating well p.o. intake and appropriate urine out. Hyperglycemia being managed by hospitalist service Patient will be discharged home today and follow-up at the wound care center [facility] Data Data Completed and Pending: Completed Studies During Hospitalization Category Date Time Status XR foot RT min 3V * [id number] Stat Exams 02/17/20 10:29 Completed Pending at discharge Category Date Time Status Blood Culture Sta t Lab 02/17/20 11:05 Results Pathology: Surgic al [PTH] Routine Pth 02/17/20 15:09 Ordered Diagnoses at Discharge Discharge Diagnosis (1) Acute osteomyelitis of toe of right foot: Status: Resolved Problem details: Daily dressing change in the form of triple antibiotic ointment on the incision site followed by 4 x 4 ABD and Andrews wrap. Nonweightbearing right forefoot (2) Cellulitis of right lower extremity: Status: Resolved Discharge Plan Discharge Patient Disposition: Home, Self-Care Condition: Stable Prescriptions: New tramadol 50 mg tablet 50 mg PO BID PRN (Reason: pain) Qty: 10 RF: 0 Continued metformin 500 mg tablet 500 mg PO DAILY RF: 0 hydroxyurea 500 mg capsule See Rx Instructions .ROUTE .COMPLEX RF: 0 levothyroxine 137 mcg tablet 137 mcg PO DAILY RF: 0 cilostazol 50 mg tablet 50 mg PO BID RF: 0 atenolol 25 mg Tablet 25 mg PO DAILY RF: 0 potassium chloride 10 mEq tablet extended release 10 meq PO DAILY RF: 0 tramadol 50 mg tablet 50 mg PO Q6H PRN (Reason: Pain) RF: 0 amlodipine 10 mg tablet 10 mg PO DAILY RF: 0 warfarin 5 mg tablet See Rx Instructions .ROUTE .COMPLEX RF: 0 furosemide 20 mg tablet 20 mg PO DAILY RF: 0 losartan 100 mg tablet 50 mg PO DAILY RF: 0 sertraline 50 mg tablet 50 mg PO DAILY RF: 0 Levemir FlexTouch U-100 Insuln 100 unit/mL (3 mL) insulin pen 46 unit SUBCUT BEDTIME RF: 0 ciprofloxacin HCl 500 mg tablet 500 mg PO BID Qty: 14 RF: 0 Discharge Orders: Discharge Order (Routine); Ordered 02/18/20 Ordered By: Vladimir Banks Referrals: Vladimir Banks MD [Physician] - 02/21/20 8:45 am (Follow-up with me at the wound care center this coming Monday) Philippe Guerra [Primary Care Provider] - 02/25/20 10:40 am Discharge Diet: Advance as tolerated Patient Instructions: Tramadol (By mouth), Osteomyelitis (DC) Activity Restrictions/Additional Instructions: Daily application of triple antibiotic ointment on the incision site followed by 4 x 4 ABDs and Andrews wrap Nonweightbearing right forefoot Discharge Date/Time: 02/18/20 14:08 Attestations Medical Necessity Statement*: Observation status Time Spent in Patient Care*: less than 30 min Quality Metrics Clinical Quality Measures: During this hospital stay, did patient experience: None Coding Level of Care Code Acute Sap Project Manager for Vilma Fwd Diagnoses Acute osteomyelitis of toe of right foot M86.171 Cellulitis of right lower extremity L03.115
--- NOTE | 2020-02-18 06:59 | ANE.PACU2 ---
 Inpatient post-anesthesia follow up: Airway intact: Yes Vital signs: Temperature 98.6 F Pulse Rate 54 Respiratory Rate 16 Blood Pressure 143/56 Pulse Oximetry 99 Oxygen Delivery Me thod Room Air Oxygen Flow Rate 8 Fraction of Inspir ed Oxygen Hydration adequate: Yes Mental status: Baseline
[2020-02-18 07:51] VITALS: BP 146/63; PULSE 59; RESP 17; TEMP 37.2; O2SAT 97
--- NOTE | 2020-02-18 08:35 | PM.PN ---
Subjective Subjective: Interval history: Yovana reports she is doing okay. She is excited about going home today. No other issues. Medications: Reviewed: Yes Vitals/I&O/Wt Last Vital Signs Temp 99.0 F 02/18/20 07:51 Pulse 59 L 02/18/20 07:51 Resp 17 02/18/20 07:51 BP 146/63 02/18/20 07:51 Pulse Ox 97 02/18/20 07:51 02/17/20 02/18/20 02/18/20 22:59 06:59 14:59 Intake Total 0 / 150 480 / 630 Output Total 1100 / 1100 300 / 1400 Balance -1100 / -950 180 / -770 Weight last 48 hrs Weight 75.75 kg Physical Exam Narrative: EXAM NARRATIVE: General exam no apparent distress Cardiovascular regular rate and rhythm without murmur Lungs clear Abdomen is soft with positive bowel sounds Extremities no cyanosis clubbing or edema Right foot with dressing intact, cap refill intact. Data : 02/18/20 04:58 02/18/20 04:58 Micro: Microbiology 02/17/20 11:05 Blood Culture - Preliminary Blood SPECIMEN COLLECTED 02/17/20 10:35 Blood Culture - Preliminary Blood SPECIMEN COLLECTED A&P Assessment and plan (1) Acute osteomyelitis of toe of right foot: Postoperative day #1 status post amputation Discussed antibiotic treatment at discharge. We will continue Cipro for 7 more days with surgery Status: Resolved (2) Cellulitis of right lower extremity: This appears significantly resolved. Status: Acute Additional A&P Information Mild hyponatremia. Slightly improved. Type 2 diabetes. Continue home meds. Hypertension. Continue home medications Peripheral vascular disease Hypothyroidism History of CVA Full code Heparin for DVT prophylaxis Attestations Medical Necessity Statement*: Surgery discharging today. Coding Level of Care Code Acute Spinner Box for [facility] Diagnoses Acute osteomyelitis of toe of right foot M86.171 Cellulitis of right lower extremity L03.115
[2020-02-18] MEDS: cilostazol 100 mg Tablet 50 MG PO (09:03)
[2020-02-18] MEDS: sertraline 50 mg Tablet PO (09:04)
[2020-02-18] MEDS: FUROsemide 20 mg Tablet PO (09:05)
[2020-02-18] MEDS: metformin 500 mg Tablet PO (09:05)
[2020-02-18] MEDS: amlodipine 10 mg Tablet PO (09:05)
[2020-02-18] MEDS: sulfamethoxazole-trimeth DS 160-800 mg Tablet 1 TAB PO (09:05)
[2020-02-18] MEDS: atenolol 50 mg Tablet 25 MG PO (09:06)
[2020-02-18 09:07] VITALS: BP 174/68
[2020-02-18] MEDS: losartan 50 mg Tablet PO (09:07)
[2020-02-18] MEDS: hydroxyurea 500 mg Capsule PO (09:10)
[2020-02-18 10:35] VITALS: BP 174/68
--- NOTE | 2020-02-18 11:03 | PC.CHAP ---
Pastoral Care Encounter/Spiritual Assessment Type of Contact [] Declined guitar instructor visit [] Patient/Family/Request visit [] Outpatient visit [] Follow-up visit [] Physician referral [] Code/Alert [x] Routine visit [] Staff referral [] Actively dying [] Patient sleeping [] Family support [] [] Out of room [] Palliative care [] [x] Receiving care in room [] Pre-surgical visit [] Trauma [] Long length of stay [] ICU visit [] Other: Relational/Emotional Strength [x] Patient feels connected with others/family/visitors/staff [] Distress [] Loneliness/isolation [] Abandonment Spirituality of Patient [x] Person of Mary [] Attends Spiritism of their Mary [x] Believes in Prayer [] Reads Bible or Faith materials [] There are Spiritual issues to be addressed Process Planner Interventions [x] Prayer [x] Active listening [x] Non-anxious presence [x] Spiritual/emotional support [] Crisis/trauma care [x] Spiritual counseling [] Bereavement support [] Provided bereavement packet [] Provided Bible/devotional materials [] Provided toy/stuffed animal, coloring book to patient or family member [] Provided Communion [] Anointing/[place] [] Salvation [] Completed spiritual assessment [] Other: Impact on Illness or Injury [] Angry [] Fearful [] Anxious [] Often cries [] Exhaustion [x] Unable to work [] Unable to attend rastafari [] Unable to walk/stand [] Unable to read [x] Unable to drive [] Unable to eat/drink [] Unable to sleep [] Unable to be with family [] Patient intubated [] Other: Summary Had surgery last night getting to home today, feels really good, has some one to help her when she goes home Time spent with patient 10 mins
[2020-02-18 12:17] LABS: Glucose Point of Care 104 mg/dL (70-110)
[2020-02-18 14:07] VITALS: BP 174/68
== END 2020-02-18 14:08 | disposition home or self-care (01) ==
LOC: ER 11:58 → OR 12:56 → MEDSURG 15:15
PROVIDERS: Internal Medicine; Admitting Provider Urology; Emergency Provider Physician Assistant; Family Provider Family Medicine; PCP Family Medicine; Visit Provider Surgery
PROC: (CPT 28810; principal; 2020-02-17 14:00)
DX: M86.171 Other acute osteomyelitis, right ankle and foot (principal); L03.115 Cellulitis of right lower limb; E11.621 Type 2 diabetes mellitus with foot ulcer; Z79.84 Long term (current) use of oral hypoglycemic drugs; E03.9 Hypothyroidism, unspecified; Z82.49 Family history of ischemic heart disease and other diseases of the circulatory system; Z83.3 Family history of diabetes mellitus; Z87.891 Personal history of nicotine dependence; Z86.73 Personal history of transient ischemic attack (TIA), and cerebral infarction without residual deficits; I10 Essential (primary) hypertension
CPT/HCPCS: 28810; 11042; 12345; 36415; 36416; 73221; 73630; 80048; 80053; 82962; 83605; 85025; 85610; 86140; 87040; 88305; 96365; 96366; 96372; 99283; 99285; G0378; J1815; J1956; J2001; J2704; J3010; J7030; J8999

== ENCOUNTER 2020-02-28 08:31 | Outpatient (RCR) | payer MEDICARE, MEDICAID, SELFPAY | END 2020-03-12 23:59 | disposition home or self-care (01) | LOC: WOUND 08:31 | PROVIDERS: Family Provider Family Medicine; PCP Nurse Practitioner Family; Visit Provider Surgery | DX: E11.621 Type 2 diabetes mellitus with foot ulcer (principal); L97.422 Non-pressure chronic ulcer of left heel and midfoot with fat layer exposed; L97.513 Non-pressure chronic ulcer of other part of right foot with necrosis of muscle; Z89.421 Acquired absence of other right toe(s) | CPT/HCPCS: 11042; 11044; 97597 ==